=== PATIENT | male | born 1935 | race Caucasian/White ===

== ENCOUNTER → 2017-06-26 | Day surgery (SDC) | payer MEDICARE, OTHER ==
[~2017-06-26] MED LIST: Erythromycin Base 0.5% Ophth Oint 1 GM Tube ONE; Lactated Ringers 1,000 ML IV SCH; Lidocaine 1% with EPINEPHrine 1:100,000 20 ML MDV ONE; Lidocaine 1%/Sod Bicarbonate in NS 8.4% 1 ML Syringe IV PRN; Propofol 200 MG/20 ML SDV ONE; Sodium Chloride 0.9% 10 ML Syringe FLUSH PRN; Tetracaine HCl/PF 0.5% 4 ML Bottle EYEBOTH SCH; Tetracaine HCl/PF 0.5% 4 ML Bottle OP ONE
--- NOTE | 2017-06-26 11:31 | PCM.PREANE ---
Preanesthetic Assessment - Anesthesia/Transfusion/Family Hx Anesthesia History: Prior Anesthesia Without Reaction Family History of Anesthesia Reaction: No Transfusion History: No Prior Transfusion(s) - Review of Systems General: No Symptoms Pulmonary: No Symptoms Cardiovascular: No Symptoms Gastrointestinal: No Symptoms Neurological: No Symptoms Other: Reports: Easy Bleeding, Diabetes - Physical Assessment NPO Status Date: 06/25/17 NPO Status Time: 19:00 O2 Sat by Pulse Oximetry: 96 Respiratory Rate: 16 Vital Signs: Last Vital Signs Temp 97.0 F 06/26/17 10:47 Pulse 59 L 06/26/17 10:47 Resp 16 06/26/17 10:47 BP 163/65 H 06/26/17 10:47 Pulse Ox 96 06/26/17 10:47 Height: 5 ft 7 in Weight: 77.111 kg ASA Class: 2 Mental Status: Alert & Oriented x3 Airway Class: Mallampati = 1 Dentition: Reports: Dentures (top) Thyro-Mental Finger Breadths: 3 Mouth Opening Finger Breadths: 3 ROM/Head Extension: Full Lungs: Clear to Auscultation, Normal Respiratory Effort Cardiovascular: Regular Rate, Regular Rhythm - Allergies Allergies/Adverse Reactions: Allergies Allergy/AdvReac Type Severity Reaction Status Date / Time brimonidine [From Alphagan P] Allergy Cannot Verified 06/25/17 14:12 Remember latanoprost Allergy Cannot Verified 06/25/17 14:12 Remember loteprednol [From Lotemax] Allergy Cannot Verified 06/25/17 14:12 Remember - Blood Blood Available: No - Acknowledgements Anesthesia Type Planned: MAC Pt an Appropriate Candidate for the Planned Anesthesia: Yes Alternatives and Risks of Anesthesia Discussed w Pt/Guardian: Yes Pt/Guardian Understands and Agrees with Anesthesia Plan: Yes PreAnesthesia Questionnaire HEENT History: Reports: Other (See Below) (glasses) Cardiovascular History: Reports: Bypass, High Cholesterol, Hypertension Respiratory History: Reports: None Gastrointestinal History: Reports: None Endocrine/Metabolic History: Reports: Diabetes, Type II Oncologic (Cancer) History: Reports: Prostate - Past Surgical History Cardiovascular Surgical History: Reports: Coronary Artery Bypass Neurological Surgical History: Reports: Other (See Below) (fusion) Musculoskeletal Surgical History: Reports: Knee Replacement - SUBSTANCE USE Smoking Status *Q: Former Smoker Tobacco Use Within Last Twelve Months: No Second Hand Smoke Exposure: No Days Per Week of Alcohol Use: 5 Number of Drinks Per Day: 1 Total Drinks Per Week: 5 Recreational Drug Use History: No - HOME MEDS Home Medications: Home Meds Aspirin [Children's Aspirin] 81 mg PO DAILY 10/01/13 [History] Hydrochlorothiazide 12.5 mg PO DAILY 10/01/13 [History] Pravastatin [Pravachol] 20 mg PO DAILY 10/01/13 [History] SitaGLIPtin [Januvia] 100 mg PO DAILY 10/01/13 [History] metFORMIN [Glucophage] 500 mg PO BIDM 10/01/13 [History] Levothyroxine [Synthroid] 50 mcg PO DAILY 06/25/17 [History] Losartan [Cozaar] 50 mg PO DAILY 06/25/17 [History] Metoprolol Tartrate [Metoprolol Tartrate] 50 mg PO DAILY 06/25/17 [History] amLODIPine Besylate [Norvasc] 5 mg PO DAILY 06/25/17 [History] - CURRENT (IN HOUSE) MEDS Current Meds: Current Medications Lactated Ringer's (Ringers, Lactated) 1,000 mls @ 125 mls/hr IV ASDIRECTED TERRELL Last Admin: 06/26/17 10:46 Dose: 125 mls/hr Lidocaine/Sodium Bicarbonate (Buffered Lidocaine 1% In Ns 8.4%) 0.25 ml IV ONETIME PRN PRN Reason: Prior to IV Start Last Admin: 06/26/17 10:46 Dose: 0.25 ml Sodium Chloride (Saline Flush) 10 ml FLUSH ASDIRECTED PRN PRN Reason: Keep Vein Open
--- NOTE | 2017-06-26 12:56 | PCM48HPAN ---
Post Anesthesia Note - EVALUATION WITHIN 48HRS OF ANESTHETIC Vital Signs in Normal Range: Yes Patient Participated in Evaluation: Yes Respiratory Function Stable: Yes Airway Patent: Yes Cardiovascular Function Stable: Yes Hydration Status Stable: Yes Pain Control Satisfactory: Yes Nausea and Vomiting Control Satisfactory: Yes Mental Status Recovered: Yes
== END ==
LOC: JD.SDS 10:16
PROVIDERS: ATTEND Ophthalmology
DX: H04.563 Stenosis of bilateral lacrimal punctum (principal); H11.823 Conjunctivochalasis, bilateral; H04.203 Unspecified epiphora, bilateral; H02.103 Unspecified ectropion of right eye, unspecified eyelid; H02.106 Unspecified ectropion of left eye, unspecified eyelid; E78.00 Pure hypercholesterolemia, unspecified; E11.9 Type 2 diabetes mellitus without complications; I10 Essential (primary) hypertension; Z79.82 Long term (current) use of aspirin; Z79.899 Other long term (current) drug therapy; Z79.84 Long term (current) use of oral hypoglycemic drugs; Z87.891 Personal history of nicotine dependence
CPT/HCPCS: 68399; 68705; 68811; A9270; J7120; J2704

== ENCOUNTER 2017-11-03 09:09 | Emergency (ER) | payer OTHER, MEDICARE ==
--- NOTE | 2017-11-03 11:43 | CR ---
Pelvis: AP view of the pelvis was obtained. Comparison: No prior pelvis exam. Mild joint space narrowing is seen within the superior left hip. Joint space within the right hip is fairly well preserved. Sacroiliac joints appear within normal limits. Previous lower lumbar spine surgery is seen. Nothing acute is identified. Impression: 1. Findings as noted above. Nothing acute is seen on AP pelvis study. Diagnostic code #2
--- NOTE | 2017-11-03 11:43 | CR ---
Lumbar spine: AP, lateral and coned-down lateral views centered to the lumbosacral junction were obtained. Comparison: Prior MRI lumbar spine exam of 03/14/16 is available, prior lumbar spine plain film study is not available.. Transpedicle screws are identified within L4, L5 and S1. These are seen on prior MRI. More superior disc spaces are preserved. Scattered endplate osteophytes are seen. Pedicles are intact. Visualized transverse and spinous processes are intact. Calcification is seen adjacent to the right side of L2. Difficult to exclude a proximal ureteral stone. Slight endplate concavities are noted of L1. These are not seen on prior MRI and otherwise are nonspecific for acute or interval chronic change. Vascular calcification is noted. Impression: 1. Calcification next to the L2 vertebral body on the right side and difficult to exclude a proximal ureteral stone. 2. Endplate concavities of L1. This is an interval change from prior MRI as noted above. 3. Other incidental findings. Diagnostic code #3
--- NOTE | 2017-11-03 11:56 | EDM.PDOC ---
ED HPI GENERAL MEDICAL PROBLEM - General Chief Complaint: Back Pain or Injury Stated Complaint: LOWER BACK PAIN Time Seen by Provider: 11/03/17 10:04 Source of Information: Reports: Patient, RN Notes Reviewed - History of Present Illness INITIAL COMMENTS - FREE TEXT/NARRATIVE: 82-year-old male comes in with low back pain. He fell 3 days ago having tripped over a box. He came down hard on his "rear-ended". In stent onset of discomfort primarily in the right buttock, right low back. Continues with movement, no pain at rest. He does not radiate down his leg. He is mainly concerned because he has had low back surgery and does have "a couple of rods in his low back". lower back Pain Score (Numeric/FACES): 5 - Related Data Allergies Allergy/AdvReac Type Severity Reaction Status Date / Time brimonidine [From Alphagan P] Allergy Cannot Verified 11/03/17 09:23 Remember latanoprost Allergy Cannot Verified 11/03/17 09:23 Remember loteprednol [From Lotemax] Allergy Cannot Verified 11/03/17 09:23 Remember Home Meds: Home Meds Aspirin [Children's Aspirin] 81 mg PO DAILY 10/01/13 [History] Hydrochlorothiazide 12.5 mg PO DAILY 10/01/13 [History] Pravastatin [Pravachol] 20 mg PO DAILY 10/01/13 [History] SitaGLIPtin [Januvia] 100 mg PO DAILY 10/01/13 [History] metFORMIN [Glucophage] 500 mg PO BIDM 10/01/13 [History] Levothyroxine [Synthroid] 50 mcg PO DAILY 06/25/17 [History] Losartan [Cozaar] 50 mg PO DAILY 06/25/17 [History] Metoprolol Tartrate 50 mg PO DAILY 06/25/17 [History] amLODIPine Besylate [Norvasc] 5 mg PO DAILY 06/25/17 [History] Past Medical History HEENT History: Reports: Hard of Hearing, Impaired Vision Cardiovascular History: Reports: Bypass, High Cholesterol, Hypertension Respiratory History: Reports: None Gastrointestinal History: Reports: None Musculoskeletal History: Reports: Other (See Below) Other Musculoskeletal History: sciatic nerve pain Endocrine/Metabolic History: Reports: Diabetes, Type II Oncologic (Cancer) History: Reports: Prostate - Past Surgical History HEENT Surgical History: Reports: Tonsillectomy Cardiovascular Surgical History: Reports: Coronary Artery Bypass Neurological Surgical History: Reports: Other (See Below) Other Neurological Surgeries/Procedures: multiple back surgeries Musculoskeletal Surgical History: Reports: Knee Replacement, Other (See Below) Other Musculoskeletal Surgeries/Procedures:: multiple back surgeries Social & Family History - Family History Family Medical History: Noncontributory - Tobacco Use Smoking Status *Q: Never Smoker Second Hand Smoke Exposure: No - Caffeine Use Caffeine Use: Reports: Coffee - Alcohol Use Days Per Week of Alcohol Use: 7 Number of Drinks Per Day: 1 Total Drinks Per Week: 7 - Recreational Drug Use Recreational Drug Use: No ED ROS GENERAL - Review of Systems Review Of Systems: See Below Constitutional: Denies: Fever, Chills, Diaphoresis HEENT: Reports: No Symptoms Respiratory: Denies: Shortness of Breath Cardiovascular: Denies: Chest Pain GI/Abdominal: Denies: Abdominal Pain, Nausea, Vomiting Musculoskeletal: Reports: Back Pain (Low back). Denies: Leg Pain Skin: Reports: No Symptoms Neurological: Denies: Numbness, Tingling ED EXAM,LOWER BACK PAIN/INJURY - Physical Exam Exam: See Below General Appearance: Alert, No Apparent Distress Eye Exam: Bilateral Eye: PERRL Throat/Mouth: Normal Inspection Head: Atraumatic Neck: Supple, Full Range of Motion Respiratory/Chest: No Respiratory Distress, Lungs Clear, Normal Breath Sounds Cardiovascular: Regular Rate, Rhythm GI/Abdominal: Soft, Non-Tender Back Exam: Paraspinal Tenderness (Right low back), Other (No bruising or swelling visible, incision visible below mid back from prior surgery). No: Vertebral Tenderness Neurological: Alert, No Motor/Sensory Deficits, Oriented x 3 Skin Exam: Warm, Dry, Normal Color Course - Vital Signs Last Recorded V/S: Last Vital Signs Temp 96.8 F 11/03/17 09:12 Pulse 63 11/03/17 09:12 Resp 18 11/03/17 09:12 BP 168/68 H 11/03/17 09:12 Pulse Ox 95 11/03/17 09:12 - Re-Assessments/Exams Free Text/Narrative Re-Assessment/Exam: 11/03/17 15:37 X-rays of low back and pelvis does not show any sign of fracture, discharge instructions as documented. Departure - Departure Time of Disposition: 11:53 Disposition: Home, Self-Care 01 Condition: Fair Clinical Impression: Fall Qualifiers: Encounter type: initial encounter Qualified Code(s): W19.XXXA - Unspecified fall, initial encounter Contusion of lower back Qualifiers: Encounter type: initial encounter Qualified Code(s): S30.0XXA - Contusion of lower back and pelvis, initial encounter Low back strain Qualifiers: Encounter type: initial encounter Qualified Code(s): S39.012A - Strain of muscle, fascia and tendon of lower back, initial encounter - Discharge Information Instructions: Back Pain, Adult Referrals: Will Echavarria MD [Primary Care Provider] - Forms: ED Department Discharge Additional Instructions: Rest back, no heavy lifting, alternate ice and heat for symptomatic relief, you may take Tylenol 500 mg 3-4 times daily for pain, you may continue to take Advil 400 mg at bedtime but I do not recommend taking any more than that per 24 hours, drink plenty of water when taking that medication, follow-up clinic with your regular medical provider if not much better within 3-5 days as expected.
== END 2017-11-03 12:00 | disposition home or self-care (01) ==
LOC: JD.ED 09:09
DX: S39.012A Strain of muscle, fascia and tendon of lower back, initial encounter (principal); E11.9 Type 2 diabetes mellitus without complications; I10 Essential (primary) hypertension; E78.00 Pure hypercholesterolemia, unspecified; Z79.84 Long term (current) use of oral hypoglycemic drugs; Z79.899 Other long term (current) drug therapy; Z79.82 Long term (current) use of aspirin; Z88.8 Allergy status to other drugs, medicaments and biological substances; W01.198A Fall on same level from slipping, tripping and stumbling with subsequent striking against other object, initial encounter
CPT/HCPCS: 72100; 72100-26; 72170; 72170-26; 99283; 99284

== ENCOUNTER 2019-02-25 08:56 | Day surgery (SDC) | payer MEDICARE, OTHER ==
[~2019-02-25 08:56] MED LIST changes: +Cefuroxime 10 MG/ML SYRINGE EYELF SCH; -Erythromycin Base 0.5% Ophth Oint 1 GM Tube ONE; -Lactated Ringers 1,000 ML IV SCH; +Lidocaine 1% PF 2 ML SDV INJECT SCH; -Lidocaine 1% with EPINEPHrine 1:100,000 20 ML MDV ONE; -Lidocaine 1%/Sod Bicarbonate in NS 8.4% 1 ML Syringe IV PRN; +Pilocarpine 4% Ophth Soln 15 ML Bot EYELF SCH; -Propofol 200 MG/20 ML SDV ONE; -Sodium Chloride 0.9% 10 ML Syringe FLUSH PRN; -Tetracaine HCl/PF 0.5% 4 ML Bottle EYEBOTH SCH; -Tetracaine HCl/PF 0.5% 4 ML Bottle OP ONE
[2019-02-25] MEDS: Polymyxin B/Trimethoprim 10 ML Bottle EYELF SCH ×3 (09:40→11:42)
[2019-02-25] MEDS: Phenylephrine 2.5% Ophth Soln 2 ML Bot EYELF SCH ×5 (09:47→11:16)
[2019-02-25] MEDS: Tropicamide 1% Ophth Soln 15 ML Bottle EYELF SCH ×4 (09:55→10:30)
--- NOTE | 2019-02-25 10:23 | PCM.PREANE ---
Preanesthetic Assessment - Procedure Proposed Procedure: left cataract - Anesthesia/Transfusion/Family Hx Anesthesia History: Prior Anesthesia Without Reaction Family History of Anesthesia Reaction: No Transfusion History: No Prior Transfusion(s) - Review of Systems General: No Symptoms Pulmonary: No Symptoms Cardiovascular: No Symptoms Gastrointestinal: No Symptoms Neurological: No Symptoms Other: Reports: Diabetes, Thyroid Problems - Physical Assessment NPO Status Date: 02/24/19 NPO Status Time: 21:00 Vital Signs: Last Vital Signs Temp 98.0 F 02/25/19 09:25 Pulse 61 02/25/19 09:25 Resp 16 02/25/19 09:25 BP 154/76 H 02/25/19 09:25 Pulse Ox 96 02/25/19 09:25 Height: 5 ft 7 in Weight: 78.018 kg ASA Class: 2 Mental Status: Alert & Oriented x3 Airway Class: Mallampati = 1 Dentition: Reports: Normal Dentition, Dentures (top) Thyro-Mental Finger Breadths: 3 Mouth Opening Finger Breadths: 3 ROM/Head Extension: Full Lungs: Clear to Auscultation, Normal Respiratory Effort Cardiovascular: Regular Rate, Regular Rhythm - Allergies Allergies/Adverse Reactions: Allergies Allergy/AdvReac Type Severity Reaction Status Date / Time brimonidine [From Alphagan P] Allergy Cannot Verified 11/03/17 09:23 Remember latanoprost Allergy Cannot Verified 11/03/17 09:23 Remember loteprednol [From Lotemax] Allergy Cannot Verified 11/03/17 09:23 Remember - Blood Blood Available: No - Anesthesia Plan Beta Liz: Metoprolol Med Last Dose Date: 02/25/19 Med Last Dose Time: 07:30 - Acknowledgements Anesthesia Type Planned: MAC Pt an Appropriate Candidate for the Planned Anesthesia: Yes Alternatives and Risks of Anesthesia Discussed w Pt/Guardian: Yes Pt/Guardian Understands and Agrees with Anesthesia Plan: Yes PreAnesthesia Questionnaire HEENT History: Reports: Hard of Hearing, Impaired Vision Cardiovascular History: Reports: Bypass, High Cholesterol, Hypertension Respiratory History: Reports: None Gastrointestinal History: Reports: None Musculoskeletal History: Reports: Other (See Below) Other Musculoskeletal History: sciatic nerve pain Endocrine/Metabolic History: Reports: Diabetes, Type II Oncologic (Cancer) History: Reports: Prostate - Past Surgical History HEENT Surgical History: Reports: Tonsillectomy Cardiovascular Surgical History: Reports: Coronary Artery Bypass Neurological Surgical History: Reports: Other (See Below) Other Neurological Surgeries/Procedures: multiple back surgeries Musculoskeletal Surgical History: Reports: Knee Replacement, Other (See Below) Other Musculoskeletal Surgeries/Procedures:: multiple back surgeries - SUBSTANCE USE Smoking Status *Q: Former Smoker Tobacco Use Within Last Twelve Months: No Second Hand Smoke Exposure: No Days Per Week of Alcohol Use: 1 Number of Drinks Per Day: 1 Total Drinks Per Week: 1 Recreational Drug Use History: No - HOME MEDS Home Medications: Home Meds Aspirin [Children's Aspirin] 81 mg PO DAILY 10/01/13 [History] SitaGLIPtin [Januvia] 100 mg PO DAILY 10/01/13 [History] metFORMIN [Glucophage] 500 mg PO QAM 10/01/13 [History] Levothyroxine [Synthroid] 50 mcg PO DAILY 06/25/17 [History] Metoprolol Tartrate 50 mg PO BID 06/25/17 [History] amLODIPine Besylate [Norvasc] 5 mg PO DAILY 06/25/17 [History] Insulin Glargine,Hum.Rec.Anlog [Toujeo Solostar] 58 unit SQ BEDTIME 02/24/19 [ History] Tamsulosin [Tamsulosin 24 Hr] 0.4 mg PO DAILY 02/24/19 [History] metFORMIN HCl [Metformin HCl] 100 mg PO QPM 02/24/19 [History] - CURRENT (IN HOUSE) MEDS Current Meds: Current Medications Cefuroxime Sodium (Zinacef) 0 mg EYELF ASDIRECTED TERRELL Stop: 02/25/19 18:00 Lidocaine HCl (Xylocaine-Mpf 1%) 1 ml INJECT ASDIRECTED TERRELL Stop: 02/25/19 18:00 Phenylephrine HCl (Jose-Synephrine 2.5% Ophth Soln) 0 ml EYELF ASDIRECTED TERRELL Stop: 02/25/19 18:00 Last Admin: 02/25/19 10:10 Dose: 1 drop Pilocarpine HCl (Pilocar 4% Ophth Soln) 0 ml EYELF ASDIRECTED TERRELL Stop: 02/25/19 18:00 Polymyxin/Trimethoprim Sulfate (Polytrim Ophth Soln) 0 ml EYELF ASDIRECTED TERRELL Stop: 02/25/19 18:00 Last Admin: 02/25/19 09:40 Dose: 1 drop Tetracaine HCl (Tetracaine 0.5% Steri-Unit Oly) 0 ml EYELF ASDIRECTED TERRELL Stop: 02/25/19 18:00 Tropicamide (Mydriacyl 1% Oph Soln) 0 ml EYELF ASDIRECTED TERRELL Stop: 02/25/19 18:00 Last Admin: 02/25/19 10:15 Dose: 1 drop
[2019-02-25] MEDS: Tetracaine HCl/PF 0.5% 4 ML Bottle EYELF SCH ×4 (10:35→11:23)
--- NOTE | 2019-02-25 11:29 | PCM48HPAN ---
Post Anesthesia Note - EVALUATION WITHIN 48HRS OF ANESTHETIC Vital Signs in Normal Range: Yes Patient Participated in Evaluation: Yes Respiratory Function Stable: Yes Airway Patent: Yes Cardiovascular Function Stable: Yes Hydration Status Stable: Yes Pain Control Satisfactory: Yes Nausea and Vomiting Control Satisfactory: Yes Mental Status Recovered: Yes Vital Signs: Last Vital Signs Temp 36.7 C 02/25/19 09:25 Pulse 61 02/25/19 09:25 Resp 16 02/25/19 09:25 BP 154/76 H 02/25/19 09:25 Pulse Ox 96 02/25/19 09:25
== END 2019-02-25 12:04 | disposition home or self-care (01) ==
LOC: JD.SDS 08:56
PROVIDERS: ATTEND Ophthalmology
DX: E10.36 Type 1 diabetes mellitus with diabetic cataract (principal); H25.813 Combined forms of age-related cataract, bilateral; H40.1131 Primary open-angle glaucoma, bilateral, mild stage; H16.103 Unspecified superficial keratitis, bilateral; H16.223 Keratoconjunctivitis sicca, not specified as Sjogren's, bilateral; H02.831 Dermatochalasis of right upper eyelid; E10.9 Type 1 diabetes mellitus without complications; H21.81 Floppy iris syndrome; E78.00 Pure hypercholesterolemia, unspecified; I10 Essential (primary) hypertension; Z87.891 Personal history of nicotine dependence; Z79.899 Other long term (current) drug therapy; Z79.82 Long term (current) use of aspirin; Z79.84 Long term (current) use of oral hypoglycemic drugs; Z88.8 Allergy status to other drugs, medicaments and biological substances
CPT/HCPCS: 66982; J0697; J2001; V2632

== ENCOUNTER 2019-03-30 07:25 | Day surgery (SDC) | payer MEDICARE, OTHER ==
[~2019-03-30 07:25] MED LIST changes: -Cefuroxime 10 MG/ML SYRINGE EYELF SCH; +Cefuroxime 10 MG/ML SYRINGE EYERT SCH; -Pilocarpine 4% Ophth Soln 15 ML Bot EYELF SCH; +Pilocarpine 4% Ophth Soln 15 ML Bot EYERT SCH
--- NOTE | 2019-03-30 08:03 | PCM.PREANE ---
Preanesthetic Assessment - Procedure Proposed Procedure: cataract right eye - Anesthesia/Transfusion/Family Hx Anesthesia History: Prior Anesthesia Without Reaction Family History of Anesthesia Reaction: No Transfusion History: No Prior Transfusion(s) - Review of Systems General: No Symptoms Pulmonary: No Symptoms Cardiovascular: No Symptoms Gastrointestinal: No Symptoms Neurological: No Symptoms Other: Reports: Diabetes, Thyroid Problems, Sinus Problem (allergies) - Physical Assessment NPO Status Date: 03/29/19 (sip water with pills) NPO Status Time: 19:30 Vital Signs: 185/67 54 96% 16 97.6 Height: 5 ft 7 in Weight: 78.018 kg ASA Class: 2 Mental Status: Alert & Oriented x3 Airway Class: Mallampati = 1 Dentition: Reports: Normal Dentition Thyro-Mental Finger Breadths: 3 Mouth Opening Finger Breadths: 3 ROM/Head Extension: Full Lungs: Clear to Auscultation, Normal Respiratory Effort Cardiovascular: Regular Rate, Regular Rhythm - Allergies Allergies/Adverse Reactions: Allergies Allergy/AdvReac Type Severity Reaction Status Date / Time brimonidine [From Alphagan P] Allergy Cannot Verified 03/25/19 11:19 Remember latanoprost Allergy Cannot Verified 03/25/19 11:19 Remember loteprednol [From Lotemax] Allergy Cannot Verified 03/25/19 11:19 Remember - Blood Blood Available: No - Anesthesia Plan Beta Liz: Metoprolol Med Last Dose Date: 03/30/19 Med Last Dose Time: 06:15 - Acknowledgements Anesthesia Type Planned: MAC Pt an Appropriate Candidate for the Planned Anesthesia: Yes Alternatives and Risks of Anesthesia Discussed w Pt/Guardian: Yes Pt/Guardian Understands and Agrees with Anesthesia Plan: Yes PreAnesthesia Questionnaire HEENT History: Reports: Hard of Hearing, Impaired Vision Cardiovascular History: Reports: Bypass, High Cholesterol, Hypertension Respiratory History: Reports: None Gastrointestinal History: Reports: None Musculoskeletal History: Reports: Other (See Below) Other Musculoskeletal History: sciatic nerve pain Endocrine/Metabolic History: Reports: Diabetes, Type II Oncologic (Cancer) History: Reports: Prostate - Past Surgical History HEENT Surgical History: Reports: Tonsillectomy Cardiovascular Surgical History: Reports: Coronary Artery Bypass Neurological Surgical History: Reports: Other (See Below) Other Neurological Surgeries/Procedures: multiple back surgeries Musculoskeletal Surgical History: Reports: Knee Replacement, Other (See Below) Other Musculoskeletal Surgeries/Procedures:: multiple back surgeries - SUBSTANCE USE Smoking Status *Q: Former Smoker Tobacco Use Within Last Twelve Months: No Second Hand Smoke Exposure: No Days Per Week of Alcohol Use: 7 Number of Drinks Per Day: 1 Total Drinks Per Week: 7 Recreational Drug Use History: No - HOME MEDS Home Medications: Home Meds Aspirin [Children's Aspirin] 81 mg PO DAILY 10/01/13 [History] SitaGLIPtin [Januvia] 100 mg PO DAILY 10/01/13 [History] metFORMIN [Glucophage] 500 mg PO QAM 10/01/13 [History] Levothyroxine [Synthroid] 50 mcg PO DAILY 06/25/17 [History] Metoprolol Tartrate 50 mg PO BID 06/25/17 [History] amLODIPine Besylate [Norvasc] 5 mg PO DAILY 06/25/17 [History] Insulin Glargine,Hum.Rec.Anlog [Toujeo Solostar] 58 unit SQ BEDTIME 02/24/19 [ History] Tamsulosin [Tamsulosin 24 Hr] 0.4 mg PO DAILY 02/24/19 [History] metFORMIN HCl [Metformin HCl] 100 mg PO QPM 02/24/19 [History] - CURRENT (IN HOUSE) MEDS Current Meds: Current Medications Cefuroxime Sodium (Zinacef) 0 mg EYERT ASDIRECTED TERRELL Stop: 03/30/19 18:00 Influenza Virus Vaccine (Fluzone High-Dose 2019-20 Syringe) 180 mcg IM .ONCE ONE Stop: 03/30/19 09:01 Lidocaine HCl (Xylocaine-Mpf 1%) 1 ml INJECT ASDIRECTED TERRELL Stop: 03/30/19 18:00 Phenylephrine HCl (Jose-Synephrine 2.5% Ophth Soln) 0 ml EYERT ASDIRECTED TERRELL Stop: 03/30/19 18:00 Pilocarpine HCl (Pilocar 4% Ophth Soln) 0 ml EYERT ASDIRECTED TERRELL Stop: 03/30/19 18:00 Polymyxin/Trimethoprim Sulfate (Polytrim Ophth Soln) 0 ml EYERT ASDIRECTED TERRELL Stop: 03/30/19 18:00 Tetracaine HCl (Tetracaine 0.5% Steri-Unit Oly) 0 ml EYERT ASDIRECTED TERRELL Stop: 03/30/19 18:00 Tropicamide (Mydriacyl 1% Ophth Soln) 0 ml [facility]YERT [facility] Stop: 03/30/19 18:00 Discontinued Medications Influenza Virus Vaccine (Pharmacy To Dose - Influenza Vaccine) 1 each IM ONETIME TERRELL
[2019-03-30] MEDS: Polymyxin B/Trimethoprim 10 ML Bottle EYERT SCH ×3 (08:04→09:39)
[2019-03-30] MEDS: Phenylephrine 2.5% Ophth Soln 2 ML Bot EYERT SCH ×6 (08:11→09:10)
[2019-03-30] MEDS: Tropicamide 1% Ophth Soln 15 ML Bottle EYERT SCH ×4 (08:18→08:40)
[2019-03-30] MEDS: Tetracaine HCl/PF 0.5% 4 ML Bottle EYERT SCH ×4 (09:02→09:17)
--- NOTE | 2019-03-30 09:40 | PCM48HPAN ---
Post Anesthesia Note - EVALUATION WITHIN 48HRS OF ANESTHETIC Vital Signs in Normal Range: Yes Patient Participated in Evaluation: Yes Respiratory Function Stable: Yes Airway Patent: Yes Cardiovascular Function Stable: Yes Hydration Status Stable: Yes Pain Control Satisfactory: Yes Nausea and Vomiting Control Satisfactory: Yes Mental Status Recovered: Yes Vital Signs: Last Vital Signs Temp 97.4 F 03/30/19 07:35 Pulse 54 L 03/30/19 07:35 Resp 16 03/30/19 07:35 BP 185/67 H 03/30/19 07:35 Pulse Ox 96 03/30/19 07:35 99% 54 18 168/69
== END 2019-03-30 09:50 | disposition home or self-care (01) ==
LOC: JD.SDS 07:25
PROVIDERS: ATTEND Ophthalmology
DX: E11.36 Type 2 diabetes mellitus with diabetic cataract (principal); H25.811 Combined forms of age-related cataract, right eye; H21.81 Floppy iris syndrome; H21.41 Pupillary membranes, right eye; E78.00 Pure hypercholesterolemia, unspecified; I10 Essential (primary) hypertension; Z87.891 Personal history of nicotine dependence
CPT/HCPCS: 66982; J0697; J2001; V2632